=== PATIENT | female | born 1955 | race Caucasian/White ===

== ENCOUNTER → 2016-09-05 | Outpatient (CLI) | payer OTHER ==
--- NOTE | 2016-09-05 14:25 | RAD ---
DATE: 09/05/2016 EXAM: DIGITAL SCREEN BILAT W/CAD HISTORY: Screening study. COMPARISON: 07/30/2015 This study was interpreted with the benefit of Computerized Aided Detection (CAD). FINDINGS: Digital MLO and CC mammograms of both breasts were obtained. Comparison study is dated 07/30/2015. The breast parenchyma is composed of scattered fibroglandular densities which can obscure a lesion on mammography (breast density code B). Benign-appearing calcifications are seen within both breasts. No spiculated mass is seen. No malignant appearing calcification or area of architectural distortion is noted. Since the previous examination there has been no significant interval change. IMPRESSION: BI-RADS Category 1, negative. There is no mammographic evidence of malignancy. Routine yearly screening mammography is recommended for follow-up. BI-RADS CATEGORY: 1 NEGATIVE RECOMMENDED FOLLOW-UP: 12M 12 MONTH FOLLOW-UP PQRS compliance statement: Patient information was entered into a reminder system with a target due date 09/05/2017 for the next mammogram. Mammography is a sensitive method for finding small breast cancers, but it does not detect them all and is not a substitute for careful clinical examination. A negative mammogram does not negate a clinically suspicious finding and should not result in delay in biopsying a clinically suspicious abnormality. "Our facility is accredited by the [employer] Mammography [employer]."
== END | disposition home or self-care (01) ==
LOC: MAMMO 10:58
PROVIDERS: ATTEND Physician Assistant
DX: Z12.31 Encounter for screening mammogram for malignant neoplasm of breast (principal)
CPT/HCPCS: G0202; 77067

== ENCOUNTER → 2017-12-22 | Outpatient (CLI) | payer OTHER ==
[~2017-12-22] MED LIST: IOHEXOL 300 MG/ML 75 ML VIAL. IV ONE
--- NOTE | 2017-12-22 15:47 | RAD ---
CT of the abdomen and pelvis with and without contrast 12/22/2017. INDICATION: Urinary urgency. Discomfort. CT urography COMPARISON STUDY: None TECHNIQUE: Multidetector CT imaging of the abdomen and pelvis was obtained without the administration of IV contrast. FINDINGS: The lung bases are grossly unremarkable in appearance. There is a small diaphragmatic defect with a fat-containing hernia seen on the left. Liver gallbladder unremarkable in appearance. The spleen is grossly unremarkable in appearance. The adrenal glands are unremarkable in appearance. Pancreas is grossly unremarkable in appearance. Small lipoma appears to be present in the duodenal wall. There is a 3 mm stone in the mid left kidney. Stone is nonobstructive. No other nephrolithiasis is seen on the left. The left ureter is normal in course and caliber. No nephrolithiasis is seen on the right. The right ureter is unremarkable in course and caliber. The bladder is grossly unremarkable. Evaluation is somewhat limited secondary to predominantly decompressed state. Post contrast enhanced imaging demonstrates normal uptake excretion of contrast from the kidneys. Tortuosity of the bilateral ureters just beyond the UPJ noted bilaterally. No focal bladder abnormality is identified. There is no evidence of bowel obstruction. No evidence of acute inflammatory change involving the bowel is identified. No free fluid or free air is seen in the abdomen or pelvis. Prior hysterectomy noted. Circumaortic left renal vein noted. Mild degenerative changes throughout the visualized thoracic and lumbar spine are noted. IMPRESSION: 1.3 mm nonobstructing stone, mid left kidney. No other nephrolithiasis or ureteral stone is seen. No evidence of acute obstructive uropathy is seen. Tortuosity of the proximal ureters just beyond the UPJ bilaterally. 2. No acute intra-abdominal abnormality is identified CT DOSING PQRS STATEMENT: One or more of the following individualized dose reduction techniques were utilized for this examination: 1. Automated exposure control 2. Adjustment of the mA and/or kV according to patient size 3. Use of iterative reconstruction technique Electronically signed by: Mynor Bravo MD (12/22/2017 3:44 PM) [id number]
== END | disposition home or self-care (01) ==
LOC: CT 12:21
PROVIDERS: ATTEND Urology
DX: R31.29 Other microscopic hematuria (principal); Z87.891 Personal history of nicotine dependence
CPT/HCPCS: 74178; Q9967

== ENCOUNTER → 2018-10-04 | Outpatient (CLI) | payer OTHER ==
--- NOTE | 2018-10-04 15:52 | RAD ---
History: Routine screening. Technique: Bilateral digital mammographic routine views were obtained with CAD - computer aided detection. Comparison: Previous mammogram from 2017 and 2016.. Findings: Breast Tissue Density B: There are scattered areas of fibroglandular densities. There are no suspicious masses, microcalcifications or areas of architectural distortion. Impression: No suspicious findings. BI-RADS Category 1: Negative. Normal interval followup. Your mammogram demonstrates that you have dense breast tissue, which could hide abnormalities, and if you have other risk factors for breast cancer that have been identified, you might benefit from supplemental screening tests that may be suggested by your ordering physician. Dense breast tissue, in and of itself, is a relatively common condition. This information is not provided to cause undue concern, but rather to raise your awareness and to promote discussion with your physician regarding the presence of other risk factors, in addition to dense breast tissue. A report of your mammography results will be sent to you and your physician. You should contact your physician if you have any questions or concerns regarding this report. A mammogram does not have 100% sensitivity and therefore a negative imaging study should not delay further work up of a suspicious abnormality. The patient will receive a letter with the results in the mail. Patient information is entered into the reminder system with a target due date for the next screening mammogram. The patient will receive a reminder. "Our facility is accredited by the [employer] Mammography Program."
== END | disposition home or self-care (01) ==
LOC: MAMMO 14:31
DX: Z12.31 Encounter for screening mammogram for malignant neoplasm of breast (principal)
CPT/HCPCS: 77067